=== PATIENT | female | born 1945 | race Caucasian/White ===

== ENCOUNTER 2016-12-25 13:47 | Emergency (ER) | payer MEDICARE, BC ==
--- NOTE | ~2016-12-25 | EKG ---
PATIENT: NATALIYA DAS UNIT #: [id number] Ventricular Rate: 67 BPM Atrial Rate: 67 BPM P-R Interval: 174 ms QRS Duration: 74 ms Q-T Interval: 388 ms QTC Calculation(Bezet): 409 ms P Solon: 74 degrees Calculated R Solon: -28 degrees Calculated T Solon: 69 degrees Diagnosis Line: Normal sinus rhythm Diagnosis Line: Low voltage QRS Diagnosis Line: Borderline ECG Diagnosis Line: No previous ECGs available Diagnosis Line: Confirmed by EDILBERTO BUNN MD ([id number]) on Diagnosis Line: 12/25/2016 4:16:06 PM INTERPRETING MD: SEPIDEH GRULLON
--- NOTE | ~2016-12-25 | CT71 ---
[facility] A Service of [facility] RADIOLOGY TEXT RESULTS PATIENT: NATALIYA DSA LOCATION: [facility] : 45 UNIT #: [id number] AGE: [address]: Desi Ny MD SEX: F ORDER DR: [id number] [facility] [address] [place], [place] [address] [id number] E MR#: [id number] Acc #: [id number] NAME: NATALIYA DAS. : 1945 SEX: F STUDY DATE/TIME: 12/25/2016 14:28 UNIT: [facility] ROOM: STUDY DESCRIPTION: CT Head Wo Contrast Attending Physician: Desi Ny M.D. Ordering Physician: Desi Ny M.D. Primary Care Physician: Moe Ruiz M.D. MEDICAL IMAGING REPORT This report is preliminary unless electronic signature is present EXAM CT head, 12/25/2016 HISTORY Dizziness for [address] head performed skull base through vertex without intravenous contrast. Comparison 11/08/2005. This CT exam was performed with one or more of the following radiation dose reduction techniques: automatic exposure control, adjustment of mA and/or kV according to patient size, and iterative reconstruction. FINDINGS The brainstem is unremarkable. Cerebellum and cerebral hemispheres show normal luu matter-white matter differentiation. No hemorrhage. No evidence of acute cortical ischemia. Periventricular and deep white matter tract mild hypodensities likely reflecting sequelae of chronic microvascular ischemia. Midline structures are nondisplaced. Basal ganglia are intact. The ventricles, cisterns and sulci normal in size and contour. There are some scattered cavernous carotid and distal vertebral arterial calcifications. No intra or extraaxial mass effect or abnormal intracranial fluid collection. The visualized intraorbital soft tissues are unremarkable. The visualized paranasal sinuses and mastoid air cells notable for minimal mucosal thickening in a few left mastoid air cells. Correlate with any clinical signs or symptoms of very mild mastoid inflammation. No air-fluid levels are seen. No fracture. IMPRESSION 1. No acute abnormality is seen in the brain. If the patient has ongoing neurologic symptoms, consider followup imaging, preferably with MRI STS. [facility] A Service of [facility] RADIOLOGY TEXT RESULTS PATIENT: NATALIYA DAS [id number] UNIT #: [id number] AGE: [address]: Desi Ny MD SEX: F ORDER DR: if the patient is a candidate. 2. Mild periventricular and deep white matter tract probable sequelae of chronic microvascular ischemia. 3. A few scattered cavernous, carotid and distal vertebral arterial calcifications. 4. Minimal mucosal thickening in a few left mastoid air cells. Correlate with any clinical indications of very mild mastoid inflammation. Dictated by... Abelino Jamil M.D. THIS IS AN ELECTRONICALLY VERIFIED REPORT Abelino Jamil M.D. at 12/27/2016 4:25 PM ELIDA/juliocesar TD: 12/25/2016 21:31 JOB #: [id number] MEDICAL IMAGING REPORT COPY
--- NOTE | ~2016-12-25 | CT17 ---
[facility] A Service of [facility] & [facility] RADIOLOGY TEXT RESULTS PATIENT: NATALIYA DAS LOCATION: [facility] : 45 UNIT #: [id number] AGE: [address]: Desi Ny MD SEX: F ORDER DR: [id number] [facility] [address] [place], [place] [address] [id number] E MR#: [id number] Acc #: [id number] NAME: NATALIYA DAS. : 1945 SEX: F STUDY DATE/TIME: 12/25/2016 14:31 UNIT: [facility] ROOM: STUDY DESCRIPTION: CT Angio Head Attending Physician: Desi Ny M.D. Ordering Physician: Desi Ny M.D. Primary Care Physician: Moe Ruiz M.D. MEDICAL IMAGING REPORT This report is preliminary unless electronic signature is present EXAM CT angiogram of the head and neck with contrast dated 12/25/2016. COMPARISON CT head without contrast dated 12/25/2016. HISTORY Dizziness for [address] exam was performed with one or more of the following radiation dose reduction techniques: Automatic exposure control, adjustment of mA and/or kV according to patient size, and iterative reconstruction. CT angiogram of the head and neck was obtained with IV contrast in the axial plane followed by reconstructions in all three planes. Curved reformats of the neck major arteries, rotating 3-D MIP images of the atka of Gars[place], surface-rendered images of the atka of [place] were obtained in a separate workstation. NECK: Aorta and its great vessels do not demonstrate any severe stenosis. Bilateral common, internal and external carotid arteries demonstrate expected caliber and flow. The right ICA has a more medially deviated course, with some mass effect on the right posterolateral aspect of the hypopharynx and oropharynx. Bilateral vertebral arteries demonstrate expected caliber and flow. Left vertebral artery is dominant. No dissection, aneurysm or AVM is seen. HEAD: Bilateral intracranial internal carotid arteries, anterior cerebral arteries and middle cerebral arteries are within normal limits. Tiny ACom is seen. Bilateral posterior cerebral arteries, basilar artery and left vertebral artery are unremarkable. Left vertebral artery feeds the STS. [facility] A Service of [facility] & [facility] RADIOLOGY TEXT RESULTS PATIENT: NATALIYA DAS LOCATION: [facility] : 45 UNIT #: [id number] AGE: [address]: Desi Ny MD SEX: F ORDER DR: basilar artery. The right vertebral artery is of very small caliber after it enters intradurally. It significantly further decreases in size after the takeoff of the right PICA and it barely contributes to the basilar artery. No obvious plaques are noted along its course, and hence this appearance is probably related to congenital appearance. Dural venous sinuses are patent. EXTRAVASCULAR SOFT TISSUES: Significant degenerative changes are noted in the cervical spine involving the discs and the facet joints. Non-enlarged, scattered few reactive lymph nodes are seen. Streak artifact from dental work limits evaluation. Tiny bony protuberances are noted arising from the lingual surface of the mandible suggestive of torus mandibularis interna. Adduction of the larynx is seen. Imaged lung apices are unremarkable. No enhancing intracranial lesion or hydrocephalus. IMPRESSION 1. No hemodynamically flow-limiting significant stenosis in bilateral internal carotid artery bulbs per NASCET criteria. 2. No dissection, aneurysm or AVM in the head or neck. 3. 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 Dictated by... Yusef Louise M.D. THIS IS AN ELECTRONICALLY VERIFIED REPORT Yusef Louise M.D. at 12/27/2016 1:08 PM CPR/psc TD: 12/26/2016 00:37 JOB #: [id number] MEDICAL IMAGING REPORT COPY
--- NOTE | ~2016-12-25 | CT23 ---
[facility] A Service of [facility] & [facility] RADIOLOGY TEXT RESULTS PATIENT: NATALIYA DAS LOCATION: [facility] : 45 UNIT #: [id number] AGE: [address]: Desi Ny MD SEX: F ORDER DR: [id number] [facility] [address] [place], [place] [address] [id number] E MR#: [id number] Acc #: [id number] NAME: NATALIYA DAS. : 1945 SEX: F STUDY DATE/TIME: 12/25/2016 14:31 UNIT: [facility] ROOM: STUDY DESCRIPTION: CT Angio Neck Attending Physician: Desi Ny M.D. Ordering Physician: Desi Ny M.D. Primary Care Physician: Moe Ruiz M.D. MEDICAL IMAGING REPORT This report is preliminary unless electronic signature is present EXAM CT angio neck HISTORY Dizziness for 3 weeks. FINDINGS Please see CT ANGIO HEAD report for combined text results. Dictated by... Yusef Louise M.D. THIS IS AN ELECTRONICALLY VERIFIED REPORT Yusef Louise M.D. at 12/27/2016 1:08 PM CPR/psc TD: 12/26/2016 00:51 JOB #: [id number] MEDICAL IMAGING REPORT COPY
--- NOTE | ~2016-12-25 | CR72 ---
[facility] A Service [facility] RADIOLOGY TEXT RESULTS PATIENT: NATALIYA DAS LOCATION: [facility] : 45 UNIT #: [id number] AGE: [address]: Desi Ny MD SEX: F ORDER DR: [id number] [place] [id number] [facility] [place], [place] [address] [id number] E MR#: [id number] Acc #: [id number] NAME: NATALIYA DAS : 1945 SEX: F STUDY DATE/TIME: 12/25/2016 12:35 UNIT: [facility] ROOM: STUDY DESCRIPTION: CR Chest Single View Portable Attending Physician: Desi Ny M.D. Ordering Physician: Desi Ny M.D. Primary Care Physician: Moe Ruiz M.D. MEDICAL IMAGING REPORT This report is preliminary unless electronic signature is present EXAM Portable chest. HISTORY [place] dizzy, shortness of air for 3 weeks. DATE: 12/25/16 COMPARISON: 01/24/11 FINDINGS A portable view of the chest was obtained. The heart size and vascularity are normal. There is some increased density in the right cardiophrenic angle which is probably fat. It is unchanged from the prior study. The bones are normal. IMPRESSION No change and No active disease. Dictated by... Beto Yo M.D. THIS IS AN ELECTRONICALLY VERIFIED REPORT eBto Yo M.D. at 12/25/2016 4:55 PM GURWINDER/irene TD: 12/25/2016 15:36 JOB #: [id number] MEDICAL IMAGING REPORT [facility] A [facility] RADIOLOGY TEXT RESULTS PATIENT: NATALIYA DAS LOCATION: [facility] : 45 UNIT #: [id number] AGE: [address]: Desi Ny MD SEX: F ORDER DR: COPY
[2016-12-25 12:53] LABS: BASOPHIL# 0.1 X10e3 (0-0.3); BASOPHIL% 0.8 % (0-2.5); EOSINOPHIL# 0.2 X10e3 (0-0.7); EOSINOPHIL% 2.7 % (0.0-7.0); HEMATOCRIT 36.8 % (35.0-45.0); HEMOGLOBIN 12.3 gm/dL (12.0-16.0); LYMPHOCYTE# 2.1 X10e3 (1.0-3.5); LYMPHOCYTE% 28.4 % (17.0-45.0); MEAN CELL VOLUME 93.2 FL (83-96); MEAN CORPUSCULAR HEMOGLOBIN 31.2 PG (28-34); MEAN CORPUSCULAR HGB CONC 33.5 g/dL (30-36); MEAN PLATELET VOLUME 7.1 FL (6.5-11.5); MONOCYTE# 0.9 X10e3 (0-1.0); NEUTROPHIL# 4.1 X10e3 (1.5-7.1); NEUTROPHIL% 56.1 % (40-75); PLATELET COUNT 254 X10e3 (140-420); RED BLOOD COUNT 3.95 X10e (3.90-5.30); RED CELL DISTRIBUTION WIDTH 12.9 % (11.0-15.5); WHITE BLOOD COUNT 7.3 X10e3 (4.0-10.5)
[2016-12-25 12:59] LABS: PARTIAL THROMBOPLASTIN TIME 24.2 SECONDS (23.5-31.3); PROTHROMBIN TIME (PATIENT) 10.3 SECONDS (9.6-11.5)
[2016-12-25 13:01] LABS: DIFF IND NO
[2016-12-25 13:11] LABS: ALBUMIN SERUM 3.8 g/dL (3.5-5.0); ALKALINE PHOSPHATASE 70 U/L (32-92); ALT (SGPT) 18 U/L (10-40); AST (SGOT) 20 U/L (10-42); BILIRUBIN,TOTAL 0.5 mg/dL (0.2-2.0); BLOOD UREA NITROGEN 21 mg/dL (9-23); CARBON DIOXIDE 26 mmol/L (22-31); CHLORIDE 106 mmol/L (100-111); CREATININE SERUM 0.7 mg/dL (0.6-1.4); GLOM FILT RATE Estimated ABOVE60 mL/min (>60); GLUCOSE FASTING 106 mg/dL (70-110); POTASSIUM 4.2 mmol/L (3.5-5.1); PROTEIN TOTAL SERUM 6.6 g/dL (6.0-8.3); SODIUM 138 mmol/L (135-145)
[2016-12-25 13:14] LABS: BILIRUBIN, DIRECT <0.1 mg/dL (0.0-0.2); BILIRUBIN,INDIRECT 0.4 mg/dL (0.0-0.9)
[~2016-12-25 13:47] MED LIST: ASPIRIN EC81 M1 PO; INDERAL20 MG PO; MULTI-DAY VITAM1 TAB PO; SYNTHROID0.05 MG PO; ZOCOR20 MG PO
[2016-12-25] MEDS ORDERED: LEVOTHYROXINE50 MCG PO (16:35)
[2016-12-25] MEDS ORDERED: SIMVASTATIN20 MG PO ×2 (16:35→16:36)
[2016-12-25] MEDS ORDERED: MOTION RELIEF25 MG PO (16:37)
[2016-12-25] MEDS ORDERED: INDERAL40 MG PO (16:37)
[2016-12-25] MEDS ORDERED: CYMBALTA30 M1 PO (16:37)
== END 2016-12-25 17:38 | disposition home or self-care (01) ==
LOC: CED 13:47
PROVIDERS: Emergency Medicine
DX: R27.0 Ataxia, unspecified (principal); Z90.710 Acquired absence of both cervix and uterus; Z88.2 Allergy status to sulfonamides; Z88.1 Allergy status to other antibiotic agents
CPT/HCPCS: 36415; 70450; 70496; 70498; 71010; 80048; 80076; 85025; 85610; 85730; 93005; 99284; Q9967